=== PATIENT | male | born 1995 | race American Indian/Alaskan Native ===

== ENCOUNTER 2020-05-12 03:32 | Emergency (ER) | payer SELFPAY ==
[2020-05-12 03:47] VITALS: BP 148/88
--- NOTE | 2020-05-12 05:33 | Emergency Department Report ---
ED Male HPI - General Chief complaint: Urogenital-Male Stated complaint: POSS STD Time Seen by Provider: 05/12/20 04:42 Source: patient Mode of arrival: Ambulatory Limitations: No Limitations - History of Present Illness Initial comments: 24-year-old [place] male presents emergency department complaining of possible contact with chlamydia as his girlfriend tested positive. Reports mild burning with urination. But no hematuria no fever, chills, sweats no flank pain no abdominal pain. Location: penis Radiation: none Severity: mild Quality: burning Consistency: constant Improves with: none Worsens with: none, urination discharge. denies: urinary retention, blood in urine - Related Data Previous Rx's Medication Instructions Recorded Last Taken Type Ibuprofen [Motrin 800 MG tab] 800 mg PO Q8HR PRN #10 tablet 02/20/15 Unknown Rx diazePAM TAB [Valium] 5 mg PO TID PRN #10 tablet 02/20/15 Unknown Rx Azithromycin [Zithromax TAB] 1,000 mg PO ONCE #2 tablet 05/12/20 Unknown Rx ceFIXime [Cefixime] 400 mg PO ONCE #1 capsule 05/12/20 Unknown Rx metroNIDAZOLE [Flagyl] 500 mg PO ONCE #4 tab 05/12/20 Unknown Rx Allergies Allergy/AdvReac Type Severity Reaction Status Date / Time No Known Allergies Allergy Unverified 02/13/15 16:32 ED Review of Systems ROS: Stated complaint: POSS STD Other details as noted in HPI Comment: All other systems reviewed and negative ED Past Medical Hx - Past Medical History Previous Medical History?: No - Surgical History Past Surgical History?: Yes Additional Surgical History: left arm fracture repair - Social History Smoking Status: Current Every Day Smoker Substance Use Type: None - Medications Home Medications: Home Medications Medication Instructions Recorded Confirmed Last Taken Type Ibuprofen [Motrin 800 MG tab] 800 mg PO Q8HR PRN #10 tablet 02/20/15 Unknown Rx diazePAM TAB [Valium] 5 mg PO TID PRN #10 tablet 02/20/15 Unknown Rx Azithromycin [Zithromax TAB] 1,000 mg PO ONCE #2 tablet 05/12/20 Unknown Rx ceFIXime [Cefixime] 400 mg PO ONCE #1 capsule 05/12/20 Unknown Rx metroNIDAZOLE [Flagyl] 500 mg PO ONCE #4 tab 05/12/20 Unknown Rx ED Physical Exam - General Limitations: No Limitations General appearance: alert, in no apparent distress - Head Head exam: Present: atraumatic, normocephalic - Eye Eye exam: Present: normal appearance, PERRL Pupils: Present: normal accommodation - ENT ENT exam: Present: mucous membranes moist - Neck Neck exam: Present: normal inspection - Respiratory Respiratory exam: Absent: respiratory distress - Cardiovascular Cardiovascular Exam: Present: regular rate, normal rhythm. Absent: systolic murmur, diastolic murmur, rubs, gallop - GI/Abdominal GI/Abdominal exam: Present: soft, normal bowel sounds - Rectal Rectal exam: Present: deferred - Extremities Exam Extremities exam: Present: normal inspection - Back Exam Back exam: Present: normal inspection - Neurological Exam Neurological exam: Present: alert, oriented X3 - Psychiatric Psychiatric exam: Present: normal affect, normal mood - Skin Skin exam: Present: warm, dry, intact, normal color. Absent: rash ED Course Vital Signs 05/12/20 03:37 Temperature 97.9 F Pulse Rate 91 H Respiratory 17 Rate Blood Pressure 148/88 O2 Sat by Pulse 96 Oximetry Critical care attestation.: If time is entered above; I have spent that time in minutes in the direct care of this critically ill patient, excluding procedure time. ED Disposition Clinical Impression: Dysuria, Possible exposure to STD Disposition: DC-01 TO HOME OR SELFCARE Is pt being admited?: No Does the pt Need Aspirin: No Condition: Stable Instructions: Chlamydia Infection (ED), Sexually Transmitted Diseases (ED), Safe Sex (ED) Prescriptions: ceFIXime [Cefixime] 400 mg PO ONCE #1 capsule metroNIDAZOLE [Flagyl] 500 mg PO ONCE #4 tab Azithromycin [Zithromax TAB] 1,000 mg PO ONCE #2 tablet Referrals: PRIMARY CARE, [Primary Care Provider] - 3-5 Days [facility] [Provider Group] - 3-5 Days
== END 2020-05-12 06:00 | disposition home or self-care (01) ==
LOC: ED 03:32
DX: R30.0 Dysuria (principal); Z20.2 Contact with and (suspected) exposure to infections with a predominantly sexual mode of transmission; F17.200 Nicotine dependence, unspecified, uncomplicated; Z79.1 Long term (current) use of non-steroidal anti-inflammatories (NSAID); Z79.899 Other long term (current) drug therapy
CPT/HCPCS: 99282

== ENCOUNTER 2020-09-19 21:14 | Emergency (ER) | payer SELFPAY ==
[2020-09-19 21:23] VITALS: BP 150/75
--- NOTE | 2020-09-19 21:25 | Emergency Department Report ---
ED General Adult HPI - General Chief complaint: Upper Respiratory Infection Stated complaint: CHEST PAIN;COUGH PUI?: Yes Time Seen by Provider: 09/19/20 21:19 Source: patient Mode of arrival: Ambulatory Limitations: No Limitations - History of Present Illness Initial comments: 24y/o male heavy smoker presents to ED c/o of excessive coughing with mucus production the last few days and became a little worred when he seen a little blood in his mucus. No gross blood only blood tinged mucus. No trauma some coryza. -: Gradual, days(s) (2-3) Location: chest Radiation: non-radiation Quality: dull Consistency: constant Improves with: none Worsens with: other (cough) Associated Symptoms: cough. denies: confusion, chest pain, loss of appetite, malaise, shortness of breath, syncope, weakness Treatments Prior to Arrival: none - Related Data Previous Rx's Medication Instructions Recorded Last Taken Type Ibuprofen [Motrin 800 MG tab] 800 mg PO Q8HR PRN #10 tablet 02/20/15 Unknown Rx diazePAM TAB [Valium] 5 mg PO TID PRN #10 tablet 02/20/15 Unknown Rx Azithromycin [Zithromax TAB] 1,000 mg PO ONCE #2 tablet 05/12/20 Unknown Rx ceFIXime [Cefixime] 400 mg PO ONCE #1 capsule 05/12/20 Unknown Rx metroNIDAZOLE [Flagyl] 500 mg PO ONCE #4 tab 05/12/20 Unknown Rx Albuterol Mdi (or & Nicu Only) 1 puff IH Q4-6H PRN #1 inha 09/19/20 Unknown Rx [ProAir HFA Inhaler] Benzonatate [Tessalon Perles] 100 mg PO Q8HR #20 capsule 09/19/20 Unknown Rx predniSONE [Deltasone] 20 mg PO QDAY #7 tab 09/19/20 Unknown Rx Allergies Allergy/AdvReac Type Severity Reaction Status Date / Time No Known Allergies Allergy Unverified 02/13/15 16:32 ED Review of Systems ROS: Stated complaint: CHEST PAIN;COUGH Other details as noted in HPI Comment: All other systems reviewed and negative ED Past Medical Hx - Past Medical History Previous Medical History?: No - Surgical History Additional Surgical History: left arm fracture repair - Social History Smoking Status: Current Every Day Smoker Substance Use Type: Marijuana - Medications Home Medications: Home Medications Medication Instructions Recorded Confirmed Last Taken Type Ibuprofen [Motrin 800 MG tab] 800 mg PO Q8HR PRN #10 tablet 02/20/15 Unknown Rx diazePAM TAB [Valium] 5 mg PO TID PRN #10 tablet 02/20/15 Unknown Rx Azithromycin [Zithromax TAB] 1,000 mg PO ONCE #2 tablet 05/12/20 Unknown Rx ceFIXime [Cefixime] 400 mg PO ONCE #1 capsule 05/12/20 Unknown Rx metroNIDAZOLE [Flagyl] 500 mg PO ONCE #4 tab 05/12/20 Unknown Rx Albuterol Mdi (or & Nicu Only) 1 puff IH Q4-6H PRN #1 inha 09/19/20 Unknown Rx [ProAir HFA Inhaler] Benzonatate [Tessalon Perles] 100 mg PO Q8HR #20 capsule 09/19/20 Unknown Rx predniSONE [Deltasone] 20 mg PO QDAY #7 tab 09/19/20 Unknown Rx ED Physical Exam - General Limitations: No Limitations General appearance: alert, in no apparent distress - Head Head exam: Present: atraumatic, normocephalic - Eye Eye exam: Present: normal appearance, PERRL, EOMI Pupils: Present: normal accommodation - ENT ENT exam: Present: normal exam, normal orophraynx, mucous membranes moist, TM's normal bilaterally - Neck Neck exam: Present: normal inspection, full ROM - Respiratory Respiratory exam: Present: normal lung sounds bilaterally. Absent: respiratory distress, wheezes, rales, rhonchi, chest wall tenderness, accessory muscle use, decreased breath sounds - Cardiovascular Cardiovascular Exam: Present: regular rate, normal rhythm. Absent: systolic murmur, diastolic murmur, rubs, gallop - GI/Abdominal GI/Abdominal exam: Present: soft, normal bowel sounds - Rectal Rectal exam: Present: deferred - Extremities Exam Extremities exam: Present: normal inspection - Back Exam Back exam: Present: normal inspection - Neurological Exam Neurological exam: Present: alert, oriented X3 - Psychiatric Psychiatric exam: Present: normal affect, normal mood - Skin Skin exam: Present: warm, dry, intact, normal color. Absent: rash ED Course Vital Signs 09/19/20 21:22 Temperature 98.9 F Pulse Rate 100 H Respiratory 18 Rate Blood Pressure 150/75 [Right] O2 Sat by Pulse 96 Oximetry ED Medical Decision Making - Radiology Data Radiology results: report reviewed [facility] [address] [place] [address] XRay Report Signed Patient: MANUEL BOWER MR#: [id number] : 1995 Acct:[id number] Age/Sex: 24 / M ADM Date: 09/19/20 Loc: ED Attending Dr: Ordering Physician: MARCY SORIANO Date of Service: 09/19/20 Procedure(s): XR chest routine 2V Accession Number(s): [id number] cc: MARCY SORIANO Fluoro Time In Minutes: CHEST 2 VIEWS INDICATION / CLINICAL INFORMATION: cough and chest pain. COMPARISON: None available. FINDINGS: SUPPORT DEVICES: None. HEART / MEDIASTINUM: No significant abnormality. LUNGS / PLEURA: No significant pulmonary or pleural abnormality. No pneumothorax. ADDITIONAL FINDINGS: No significant additional findings. IMPRESSION: 1. No acute findings. Signer Name: Lam Baker MD Signed: 09/19/2020 9:56 PM Workstation Name: [id number] Transcribed By: RH Dictated By: LAM BAKER III Electronically Authenticated By: LAM BAKER III Signed Date/Time: 09/19/202155 DD/ 54 TD/TT: Print Cancel - Medical Decision Making This patient presents with acute cough, most consistent with bronchitis. Differential diagnosis includes bronchitis, asthma, hyperreactive airway disease. Presentation not consistent with acute bacterial pneumonia, influenza, asthma, transient airway hyperresponsiveness. Presentation not consistent with chronic causes of cough (including GERD, asthma, postnasal discharge, medication side effect, CHF, lung cancer or mass). Plan: , supportive care, reassess [address] [address] XRay Report Signed Patient: MANUEL BOWER MR#: [id number] : 1995 Acct:[id number] Age/Sex: 24 / M ADM Date: 09/19/20 Loc: ED Attending Dr: Ordering Physician: MARCY SORIANO Date of Service: 09/19/20 Procedure(s): XR chest routine 2V Accession Number(s): [id number] cc: MARCY SORIANO Fluoro Time In Minutes: CHEST 2 VIEWS INDICATION / CLINICAL INFORMATION: cough and chest pain. COMPARISON: None available. FINDINGS: SUPPORT DEVICES: None. HEART / MEDIASTINUM: No significant abnormality. LUNGS / PLEURA: No significant pulmonary or pleural abnormality. No pneumothorax. ADDITIONAL FINDINGS: No significant additional findings. IMPRESSION: 1. No acute findings. Signer Name: Lam Baker MD Signed: 09/19/2020 9:56 PM Workstation Name: [id number] Transcribed By: Dictated By: LAM BAKER III Electronically Authenticated By: LAM BAKER III Signed Date/Time: 09/19/202155 DD/ 54 TD/TT: Print Cancel Critical care attestation.: If time is entered above; I have spent that time in minutes in the direct care of this critically ill patient, excluding procedure time. ED Disposition Clinical Impression: Cough, Bronchitis Disposition: DC-01 TO HOME OR SELFCARE Is pt being admited?: No Does the pt Need Aspirin: No Condition: Stable Instructions: Chronic Bronchitis (ED), Cough, Adult, [id number], How to Use a Dry Powder Inhaler, [id number], Acute Bronchitis, Adult Prescriptions: predniSONE [Deltasone] 20 mg PO QDAY #7 tab Albuterol Mdi (or & Nicu Only) [ProAir HFA Inhaler] 1 puff IH Q4-6H PRN #1 inha PRN Reason: Cough Benzonatate [Tessalon Perles] 100 mg PO Q8HR #20 capsule Referrals: PRIMARY CARE, [Primary Care Provider] - 3-5 Days [facility] [Provider Group] - 3-5 Days
--- NOTE | 2020-09-19 22:00 | XRay Report ---
CHEST 2 VIEWS INDICATION / CLINICAL INFORMATION: cough and chest pain. COMPARISON: None available. FINDINGS: SUPPORT DEVICES: None. HEART / MEDIASTINUM: No significant abnormality. LUNGS / PLEURA: No significant pulmonary or pleural abnormality. No pneumothorax. ADDITIONAL FINDINGS: No significant additional findings. IMPRESSION: 1. No acute findings. Signer Name: Diallo Baker MD Signed: 09/19/2020 9:56 PM Workstation Name: [id number]
== END 2020-09-20 01:32 | disposition home or self-care (01) ==
LOC: ED 21:14
DX: J40 Bronchitis, not specified as acute or chronic (principal); R05 Cough; F17.200 Nicotine dependence, unspecified, uncomplicated; F12.90 Cannabis use, unspecified, uncomplicated; Z79.899 Other long term (current) drug therapy; Z98.890 Other specified postprocedural states
CPT/HCPCS: 71046